=== PATIENT | male | born 1995 | race Hispanic/Latino ===

== ENCOUNTER 2018-05-14 16:34 | Emergency (ER) | payer BC, OTHER ==
[2018-05-14] MEDS ORDERED: Acetaminophen 500 MG TAB ONE (17:31)
[2018-05-14] MEDS ORDERED: Ibuprofen 600 MG TAB ONE (17:31)
--- NOTE | 2018-05-14 17:32 | CT ---
CT BRAIN NONCONTRAST: 05/14/18 HISTORY: 23-year-old male status post acute head trauma. FINDINGS: There is no midline shift or any other mass effect. There is no evidence of acute intracranial hemor rhage, large cortical infarct, obstructive hydrocephalus, or extraaxial fluid collection. The calvar ium is intact. IMPRESSION: No acute intracranial findings. jn [] POS: JIN
== END 2018-05-14 17:56 | disposition home or self-care (01) ==
LOC: MADERS 16:34
DX: S06.0X0A Concussion without loss of consciousness, initial encounter (principal); H91.92 Unspecified hearing loss, left ear; V63.5XXA Driver of heavy transport vehicle injured in collision with car, pick-up truck or van in traffic accident, initial encounter
CPT/HCPCS: 70450